=== PATIENT | male | born 1980 ===

== ENCOUNTER → 2024-06-06 | Outpatient (CLI) | payer OTHER ==
--- NOTE | 2024-06-06 17:28 | US ---
EXAMINATION TYPE: US thyroid st tissue head/neck DATE OF EXAM: 06/06/2024 COMPARISON: NONE CLINICAL INDICATION: Male, 43 years old with history of E05.90 THYROTOXICOSIS; abnormal labs TECHNIQUE: Grayscale and color Doppler imaging of the thyroid gland. FINDINGS: GLAND SIZE: Right Lobe: 5.1 x 2.1 x 1.4 cm Overall Parenchyma: heterogeneous Left Lobe: 4.8 x 1.9 x 1.6 cm Overall Parenchyma: heterogeneous Isthmus Thickness: 0.3 cm NODULES RIGHT: # of nodules measured on right: 1 1. 1.4 X 1.1 x 0.7 cm, deep mid, solid or almost completely solid, hypoechoic TR4 nodule, which is wider than tall, with ill-defined margins, without echogenic foci. LEFT: # of nodules measured on left: 0 ISTHMUS: # of nodules measured in the isthmus: 0 Bilateral neck scanned, no evidence of lymphadenopathy. IMPRESSION: 1. Borderline thyromegaly. 2. Solitary deep right midpole TR4 nodule measuring 1.4 cm. TI-RADS assessment score and recommendation for follow-up based on appropriate scoring and treatment protocols. TR4: If nodule size is ? 1.5 cm, FNA is recommended. If nodule size is ? 1.0 cm, follow-up imaging at 1, 2, 3, and 5 years is recommended. [facility], , 06/06/2024 5:26 PM
== END | disposition home or self-care (01) ==
LOC: RADUSWWP 16:15
PROVIDERS: ATTEND Family Medicine
DX: E04.1 Nontoxic single thyroid nodule (principal); E05.90 Thyrotoxicosis, unspecified without thyrotoxic crisis or storm
CPT/HCPCS: 76536

== ENCOUNTER 2024-07-07 08:18 | Day surgery (SDC) | payer OTHER ==
[2024-07-07 09:00] VITALS: BP 115/97; PULSE 88; RESP 16; TEMP 98
--- NOTE | 2024-07-07 09:28 | US ---
EXAMINATION TYPE: US discontinued FNA panel DATE OF EXAM: 07/07/2024 9:09 AM CLINICAL INDICATION:Male, 43 years old with history of E04.1 NONTOXIC SINGLE THYROID NODULE. COMPARISON: Prior thyroid ultrasound June 06, 2024 ATTENDING: Dr. Velasquez PROCEDURE: Informed consent was obtained. The risks and benefits of the procedure were discussed with the patien t. Prior to beginning procedure, Ultrasound imaging demonstrates a posterior right 1.1 x 0.9 x 0.6 cm hypoechoic solid nodule which is wider greater than tall with I feel irregular margins without echog enic foci, TR 4 lesion. Appropriate management for this is repeat ultrasound at 1, 2, 3, and 5 year intervals. This was discu ssed with patient versus attempted fine-needle aspiration. Patient was agreeable to sonographic follo w-up. At this point procedure was canceled. IMPRESSION: As above. Sonographic follow-up at 1, 2, 3, and 5 years is advised for the 1.1 cm TR 4 right posterio r thyroid nodule. [facility], , 07/07/2024 9:25 AM
== END 2024-07-07 09:10 | disposition home or self-care (01) ==
LOC: RADPROMAIN 08:18
PROVIDERS: ATTEND Family Medicine
DX: Z53.8 Procedure and treatment not carried out for other reasons (principal); E04.1 Nontoxic single thyroid nodule
CPT/HCPCS: 76536